=== PATIENT | male | born 1970 | race Caucasian/White ===

== ENCOUNTER 2018-09-10 01:17 | Emergency (ER) | payer MEDICAID ==
[~2018-09-10] VITALS: Ht 182.9 cm; Wt 81.6 kg
[2018-09-10 07:15] VITALS: BP 154/10
[2018-09-10] MEDS ORDERED: TETANUS-DIPTH-ACEL PERTUSSIS 0.5ML SYRG IM ONE (07:15)
[2018-09-10] MEDS ORDERED: cefTRIAXone SOD 1,000 MG VL IM ONE (07:15)
[2018-09-10] MEDS ORDERED: KETOROLAC TROMETH 60MG/2ML VIAL IM ONE (07:45)
== END 2018-09-10 10:34 | disposition home or self-care (01) ==
LOC: MERGE 01:22 → ER 01:22
DX: L03.011 Cellulitis of right finger (principal); Z59.0 Homelessness
CPT/HCPCS: 73130; 73200; 90471; 90715; 96372; 99284; J0696; J1885

== ENCOUNTER 2019-12-28 13:52 | Emergency (ER) | payer SELFPAY ==
[~2019-12-28] VITALS: Ht 182.9 cm; Wt 90.7 kg
[2019-12-28 14:26] VITALS: BP 161/97
[2019-12-28] MEDS ORDERED: levETIRAcetam 500 MG TAB PO ONE ×2 (16:15)
[2019-12-28] MEDS ORDERED: ALPRAZolam 0.5 MG TAB PO ONE (16:15)
== END 2019-12-28 19:07 ==
LOC: ER 13:52
DX: Z76.0 Encounter for issue of repeat prescription (principal); F41.9 Anxiety disorder, unspecified; H53.2 Diplopia; F17.210 Nicotine dependence, cigarettes, uncomplicated

== ENCOUNTER 2019-12-29 20:22 | Emergency (ER) | payer SELFPAY ==
[~2019-12-29] VITALS: Ht 182.9 cm; Wt 91.2 kg
[2019-12-29] MEDS ORDERED: levETIRAcetam 500 MG TAB PO ONE (22:45)
[2019-12-29 23:15] VITALS: BP 144/96
== END 2019-12-30 00:22 | disposition home or self-care (01) ==
LOC: ER 20:25
DX: S02.32XA Fracture of orbital floor, left side, initial encounter for closed fracture (principal); H10.32 Unspecified acute conjunctivitis, left eye; M25.531 Pain in right wrist; M25.532 Pain in left wrist; F17.210 Nicotine dependence, cigarettes, uncomplicated; Y08.89XA Assault by other specified means, initial encounter; Y93.89 Activity, other specified; Y92.89 Other specified places as the place of occurrence of the external cause; Y99.8 Other external cause status
CPT/HCPCS: 70486; 73110

== ENCOUNTER 2020-12-06 01:01 | Emergency (ER) | payer MEDICAID ==
[~2020-12-06] VITALS: Ht 182.9 cm; Wt 83.9 kg
[2020-12-06 01:38] LABS: Basophils % (auto) 1.1 % (0.0-2.0); Eosinophils % (auto) 2.5 % (0.0-7.0); Lymphocytes % (auto) 32.8 % (10.0-50.0); Monocytes % (auto) 11.7 % (0.0-12.0); Neutrophils % (auto) 51.9 % (37.0-80.0); Nucleated Red Blood Cells % 0.1 %; White Blood Cell 6.5 10^3/uL (4.4-10.8)
[2020-12-06 01:39] LABS: Basophils # (auto) 0.1 10 ^3/uL (0-0.2); Eosinophils # (auto) 0.2 10 ^3/uL (0-0.8); Hematocrit 40.5 % (41.0-53.0); Hemoglobin 13.8 g/dL (13.5-17.5); Lymphocytes # (auto) 2.1 10 ^3/uL (0.4-5.4); Mean Corpuscular Hemoglobin 30.2 pg (28.0-32.0); Mean Corpuscular Volume 88.9 fL (80.0-100.0); Monocytes # (auto) 0.8 10 ^3/uL (0-1.3); Neutrophils # (auto) 3.4 10 ^3/uL (1.6-8.6); Platelet Count (auto) 217 10^3/uL (140-450); Red Blood Cells 4.56 10^6/uL (4.5-5.90); Red Cell Distribution Width 14.2 % (11.8-14.3)
[2020-12-06 01:56] LABS: Albumin 3.9 g/dL (3.4-5.0); BUN/Creatinine Ratio 18.8; Calcium 8.4 mg/dL (8.5-10.1); Potassium 4.3 mmol/L (3.5-5.1)
[2020-12-06 01:59] LABS: Bilirubin, Total 0.5 mg/dL (0.2-1.0); Total Protein 7.4 g/dL (6.4-8.2)
[2020-12-06] MEDS ORDERED: SODIUM CHLORIDE 0.9% 1,000 ML IV ONE ×2 (02:30→05:45)
[2020-12-06] MEDS ORDERED: levETIRAcetam 500 MG/5ML INJ IV ONE (02:50)
[2020-12-06 03:04] LABS: Urine Bacteria NONE SEEN /hpf (None Seen); Urine Blood Negative /uL (Negative); Urine Specific Gravity 1.025 (1.001-1.035); Urine WBC 1 /hpf (0 - 3)
[2020-12-06 06:43] VITALS: BP 113/80
== END 2020-12-06 08:49 | disposition home or self-care (01) ==
LOC: ER 02:03
DX: G40.909 Epilepsy, unspecified, not intractable, without status epilepticus (principal); R74.8 Abnormal levels of other serum enzymes; F17.210 Nicotine dependence, cigarettes, uncomplicated
CPT/HCPCS: 36415; 72125; 73030; 80053; 81001; 82550; 83605; 85025; 96361; 96365; 99285; J1953; J7030; J7060